=== PATIENT | female | born 2000 | race Two or more races ===

== ENCOUNTER 2024-05-20 19:06 | Emergency (ER) | payer SELFPAY ==
[~2024-05-20] VITALS: Ht 170.2 cm; Wt 63.5 kg
[2024-05-20 19:24] VITALS: BP 131/68; TEMP 98.1; O2SAT 98
== END 2024-05-20 19:27 | disposition home or self-care (01) ==
LOC: ER 19:08
DX: F19.10 Other psychoactive substance abuse, uncomplicated (principal)